=== PATIENT | male | born 1980 | race Caucasian/White ===

== ENCOUNTER 2024-08-25 02:26 | Emergency (ER) | payer OTHER, SELFPAY ==
[2024-08-25 02:30] VITALS: BP 162/92
[2024-08-25 03:06] LABS: % Basophils 1.1 % (0-2); % Eosinophils 3.4 % (0-6); % Immature Granulocytes 0.3 % (0-0.5); % Lymphocytes 24.6 % (20.5-51.1); % Neutrophils 63.6 % (42.2-75.2); Absolute Basophils 0.2 10^3/uL (0-0.2); Absolute Eosinophils 0.5 10^3/uL (0-0.7); Absolute Immature Granulocytes 0.1 10^3/uL (0-0.05); Absolute Lymphocytes 3.6 10^3/uL (1.2-3.4); Absolute Neutrophils 9.4 10^3/uL (1.4-6.5); Hematocrit 41.9 % (39.0-52.0); Mean Corp Hgb Conc. 35.8 g/dL (33.0-37.0); Mean Corpuscular Hgb 30.3 pg (27.0-31.0); Mean Corpuscular Volume 84.6 fL (80.0-94.0); Mean Platelet Volume 9.6 fL (7.4-10.4); Nucleated Red Blood Cells % 0 % (-); Platelet Count 257 10^3/uL (130-400); Red Blood Cell Count 4.95 10^6/uL (4.70-6.10); Red Cell Dist. Width 12.6 % (11.5-14.5); White Blood Cell Count 14.8 10^3/uL (4.8-10.8)
[2024-08-25 03:21] LABS: ALT (SGPT) 27 U/L (0-50); AST (SGOT) 26 U/L (17-59); Albumin 4.2 g/dl (3.5-5.0); Alkaline Phosphatase 93 U/L (38-126); Blood Urea Nitrogen 21 mg/dl (9-20); Calcium 9.8 mg/dl (8.4-10.2); Carbon Dioxide 27 mmol/L (22-30); Chloride 103 mmol/L (98-107); Glucose 105 mg/dl (70-99); Lipase 241 U/L (23-300); Potassium 4.4 mmol/L (3.5-5.1); Sodium 140 mmol/L (135-145); Total Bilirubin 0.3 mg/dl (0.2-1.3); Total Protein 6.9 g/dl (6.3-8.2); eGFR > 60.00
[2024-08-25 03:27] LABS: Urine Albumin Negative (Neg - Trace); Urine Bilirubin Negative (Negative); Urine Character Clear (Clear); Urine Color Yellow; Urine Glucose Negative (Negative); Urine Ketone Negative (Negative); Urine Leukocyte Negative (Negative); Urine Nitrite Negative (Negative); Urine Occult Blood Negative (Negative); Urine Specific Gravity 1.025 (<1.030); Urine Urobilinogen Negative (Neg - 1+)
--- NOTE | 2024-08-25 03:31 | ED.GENMED ---
History of Present Illness
General
Chief Complaint: Abdominal Pain
Source: patient and spouse
Exam Limitations: none
Time Seen by Provider: 08/25/24 02:41
Nursing documentation reviewed up to this point in time: agreed with
History of Present Illness
History of Present Illness:
44-year-old male with no reported chronic medical issues presents to the emergency room for evaluation of abdominal pain. Patient reports onset of symptoms about a week ago and they were intermittent and he says resolved for a day or 2 and then
returned tonight at around 11 PM. He reports pain across the lower abdomen, does not localize to 1 side or the other. He says pain is sharp and intense. He denies any clear triggering or relieving factors although he did try Tylenol and Motrin at
home. He says he did have some nausea and sweatiness associated with the pain tonight but no vomiting. No diarrhea or constipation. He denies any dysuria, hematuria, change in urinary frequency. Denies any scrotal pain or swelling. He denies
having had similar symptoms in the past. Denies prior history of abdominal surgeries.
Review of Systems
Review of Systems
All Other Systems: ROS reviewed and negative except as documented in HPI and ROS
Constitutional: Denies fever or chills
EENT: Denies sore throat or runny nose
Respiratory: Denies cough or trouble breathing
Cardiac: Denies chest pain or palpitations
ABD/GI: Reports abdominal pain and nausea; Denies vomiting, diarrhea or constipated
: Denies dysuria, frequency or flank pain
Musculoskeletal: Denies neck pain or back pain
Neurological: Denies headache
Phy Exam
Physical Exam
Physical Exam:
General: Awake, alert, oriented x3; appears mildly anxious
Head: Normocephalic, atraumatic
Eyes: Conjunctiva normal, sclera anicteric
Throat: Airway intact, handling secretions
Neck: Trachea midline
Lungs: Clear to auscultation bilaterally, no wheezing, rales, rhonchi
Heart: Regular rate and rhythm, no murmurs, gallops, or rubs
Abd: Soft, non distended, tender to palpation across the lower abdomen with no palpable masses
Back: No CVA tenderness
Neuro: No gross deficits
Skin: no rash
Extremities: No edema in extremities, warm and well-perfused
Scores
Heart Failure Risk
Heart Failure Risk Score: Not Applicable
Heart Score for Chest Pain Patients
STEMI patient?: Not applicable
Withdrawal Assessment of Alcohol
Withdrawal Assessment Completed?: Not applicable
Course
Orders/Labs/Results
Orders:
Orders
08/25/24 02:41
Bladder Scan- Treatment ONCE
08/25/24 02:55
Complete Blood Count/With Diff Urgent
Comprehensive Metabolic Panel Urgent
Lipase Urgent
08/25/24 03:17
Urinalysis Reflex To Culture Urgent
Date Specimen was Collected: 08/25/24
Time Specimen was Collected: 03:15
08/25/24 03:31
CT Abd/pelvis W Iv Cont Urgent
Comment:
Reason For Exam: lower abd pain and tenderness
Morphine Sulfate 4 mg IV NOW STA
08/25/24 04:59
Ketorolac [Toradol] 15 mg IV NOW STA
08/25/24 05:23
Doxycycline [Vibramycin] 100 mg PO NOW STA
08/25/24 05:24
Ciprofloxacin HCl [Cipro] 500 mg PO ONCE ONE
Abnormal Lab Results
08/25/24
02:55
WBC 14.8 H 10^3/uL
(4.8-10.8)
Abs Immat Gran (auto) 0.1 H 10^3/uL
(0-0.05)
Absolute Neuts (auto) 9.4 H 10^3/uL
(1.4-6.5)
Absolute Lymphs (auto) 3.6 H 10^3/uL
(1.2-3.4)
Absolute Monos (auto) 1.0 H 10^3/uL
(0.1-0.6)
BUN 21 H mg/dl
(9-20)
Glucose 105 H mg/dl
(70-99)
08/25/24 02:55
08/25/24 02:55
Vital Signs
Initial and Last Documented VS:
Initial Vital Signs
Pulse Resp BP Pulse Ox
88 18 162/92 97
08/25/24 02:30 08/25/24 02:30 08/25/24 02:30 08/25/24 02:30
Last Documented Vital Signs
Temp Pulse Resp BP Pulse Ox
36.9 C 74 16 110/71 96
08/25/24 05:26 08/25/24 05:26 08/25/24 05:26 08/25/24 05:26 08/25/24 05:26
MDM/Problems Addressed
Differential Diagnosis Includes:
Appendicitis, diverticulitis, urinary retention, nephrolithiasis
MDM/Problems Addressed:
44-year-old male presents to the emergency room for evaluation of lower abdominal pain�was intermittent last week and then resolved for a day or 2 and then returned tonight around 11 and has been very intense since. Associated with nausea but no
vomiting or other GI symptoms. Hypertensive but otherwise normal vitals. Physical exam as above. Will check labs including CBC and CMP. Check urinalysis. Check CT abdomen pelvis. Treat pain. Monitor closely reassess at the above.
Labs reviewed: CBC shows leukocytosis to 14.8. CMP no clinically significant abnormalities. Urinalysis negative for infection, no blood. Awaiting CT.
CT abdomen pelvis shows acute uncomplicated diverticulitis. Clinical reassessment patient had reasonable pain control with morphine and Toradol. Spoke to the patient at length�he has no signs of abscess or perforation and does not appear to be
septic; nevertheless given his amount of pain I did offer admission. He feels his pain is well-controlled and he feels comfortable with discharge�will write for a few doses of Tylenol 3 for breakthrough pain. Will prescribe Cipro/Flagyl.
Follow-up with PCP. Spoke about return precautions in detail and all questions answered.
*Radiology
Radiology exam reviewed: radiology read reviewed
*Pulse Oximetry
Patient hypoxic: no
*Critical Care Note
Total Time (30-74mins, 75-104mins- exclusive of procedures): Not Applicable
Data Reviewed
Source: patient and spouse
ED Attending Note
-
Portions of this chart may have been created with voice recognition software.� Occasional wrong word or��sound alike� substitutions may have occurred due to the inherent limitations of voice recognition software.
Discharge Plan
Departure
Patient Disposition: Home (Routine Discharge)
Date of Disposition: 08/25/24
Time of Disposition: 05:43
Patient with high blood pressure during this ER visit?: Yes
Discharge Problem:
Diverticulitis
Instructions: Diverticulitis (DC)
Prescriptions:
New
ciprofloxacin HCl 500 mg tablet
500 mg PO BID 10 Days Qty: 20 0RF
metronidazole 500 mg tablet
500 mg PO TID 10 Days Qty: 30 0RF
acetaminophen-codeine 300-15 mg tablet
1 tab PO Q4HPRN PRN (Reason: pain) Qty: 14 0RF
Referrals:
Rayshawn Mayes DO [Family Provider] - Call in 1-3 days for appt
Activity Restrictions/Additional Instructions:
Thank you for visiting the Emergency Department at [facility].
1. Please schedule a follow up appointment as directed. Call first thing tomorrow morning to make an appointment.
2. If indicated, please take your medications as instructed and indicated on discharge paperwork.
3. If any of your symptoms do not improve, or persist, or become more severe within 6-12 hours, please return to the emergency department for further care.
4. Please return to the emergency department if you develop a headache, neck pain/stiffness, fever greater than 100.4F, chest pain, shortness of breath, persistent nausea, vomiting, slurred speech, difficulty walking, numbness/tingling, weakness,
signs of infection or any other symptoms that are worrisome to you.
Please call [phone] if you have any questions.
Interventions
Interventions:
*Risk Screen - Suicide Last Done: 08/25/24 02:30
*General Assessment Last Done: 08/25/24 02:30
*Neglect/Abuse Screening Last Done: 08/25/24 02:30
ED- Fall Risk Assessment Last Done: 08/25/24 02:30
*ED COVID-19 Vaccine History Last Done: 08/25/24 02:30
QF-Jncsdn-Crwmayiqje Assessment Last Done: 08/25/24 02:30
Discharge Date and Time
Print Language: [id number]
[2024-08-25] MEDS: MORPHINE SULFATE 4 MG IV (03:37)
[2024-08-25 04:30] VITALS: BMI 25.9
[2024-08-25] MEDS: TORADOL 15 MG IV (05:02)
[2024-08-25 05:26] VITALS: BP 110/71
[2024-08-25] MEDS: CIPRO 500 MG PO (05:52)
[2024-08-25] MEDS: VIBRAMYCIN 100 MG PO (05:52)
[2024-08-25 06:06] VITALS: BMI 25.9
[2024-08-25 06:09] VITALS: BP 111/86
== END 2024-08-25 06:05 | disposition home or self-care (01) ==
LOC: EMR 02:26
PROVIDERS: EMERGENCY PHYSICIAN Emergency Medicine; FAMILY PHYSICIAN Family Medicine
DX: K57.32 Diverticulitis of large intestine without perforation or abscess without bleeding (principal)
CPT/HCPCS: 96374; 96375; 99284; 74177; 80053; 81003; 83690; 85025; Q9967